=== PATIENT | female | born 1950 | race Caucasian/White ===

== ENCOUNTER 2017-03-26 13:03 | Emergency (ER) | payer BC, OTHER ==
[~2017-03-26] VITALS: Ht 157.5 cm; Wt 65.8 kg
--- NOTE | 2017-03-26 13:18 | ED General ---
General Chief Complaint: General Problems/Pain Stated Complaint: NEEDS COVERING FOR PIC LINE REPLACED Source of Information: Patient Exam Limitations: No Limitations History of Present Illness Time Seen by Provider: 13:16 Initial Comments To ER with need for a new dressing over her PICC line to the right arm. Patient is from [facility] and is a leukemia patient at [facility] in [place]. She is visiting here as she was finally cleared to travel by her oncologist. She is originally from [facility] [place]. She has her PICC line in place but the dressing became loose this morning. No redness or pain around the PICC line. No fevers or chills. Timing/Duration: 1-2 Days Severity: Moderate Allergies and Home Medications Allergies Coded Allergies: Sulfa (Sulfonamide Antibiotics) (Verified Allergy, Unknown, 03/26/17) latex (Verified Allergy, Unknown, 03/26/17) silver (Verified Allergy, Unknown, 03/26/17) Home Medications Cefpodoxime Proxetil 200 Mg Tablet, #60 (Reported) Hydromorphone HCl 2 Mg Tablet, #20 (Reported) Mupirocin 22 Gm Oint...g., #22 (Reported) Ondansetron 8 Mg Tab.rapdis, #18 (Reported) Tramadol HCl 50 Mg Tablet, #80 (Reported) Valacyclovir HCl 500 Mg Tablet, #30 (Reported) Constitutional: see HPI EENTM: see HPI Respiratory: no symptoms reported Cardiovascular: no symptoms reported Genitourinary: no symptoms reported Musculoskeletal: no symptoms reported Skin: no symptoms reported Psychiatric/Neurological: No Symptoms Reported Hematologic/Lymphatic: No Symptoms Reported Past Ctzhpeh-Uccheg-Kikugn Hx Patient Social History Recent Foreign Travel: No Contact w/Someone Who Travel: No Physical Exam Vital Signs Vital Sign - Last 12Hours 03/26/17 13:11 Temp 97.6 Pulse 81 Resp 18 B/P (MAP) 125/78 Pulse Ox 97 O2 Delivery Room Air Capillary Refill : General Appearance: No Apparent Distress, WD/WN Eyes: Bilateral Eye EOMI, Bilateral Eye Normal Inspection, Bilateral Eye PERRL HEENT: PERRL/EOMI, TMs Normal Neck: Full Range of Motion, Normal Inspection Respiratory: No Accessory Muscle Use, No Respiratory Distress Cardiovascular: Regular Rate, Rhythm, Normal Peripheral Pulses Gastrointestinal: Normal Bowel Sounds, Non Tender, Soft Extremity: Normal Capillary Refill, Non Tender Neurologic/Psychiatric: Alert, Oriented x3 Skin: Normal Color, Warm/Dry, Other (PICC line insertion to the medial right upper arm with absolutely no erythema around the insertion site. Remain sutured in place. No drainage. Surrounding skin is soft and dry nontender. This was cleansed with chlorhexidine swabs then recovered with an OpSite.) Progress/Results/Core Measures Results/Orders Vital Signs/I&O Vital Sign - Last 12Hours 03/26/17 13:11 Temp 97.6 Pulse 81 Resp 18 B/P (MAP) 125/78 Pulse Ox 97 O2 Delivery Room Air Departure Impression Impression: Primary Impression: Encounter for change of dressing Disposition: HOME, SELF-CARE Condition: Stable Departure-Patient Inst. Decision time for Depature: 13:17 Referrals: NO,LOCAL PHYSICIAN (PCP/Family) Primary Care Physician Patient Instructions: NO INSTRUCTIONS GIVEN Add. Discharge Instructions: 1. All discharge instructions reviewed with patient and/or family. Voiced understanding. SABAS BUENROSTRO ROTOR PILOT March 26, 2017 13:18
[2017-03-26] MEDS ORDERED: VALA500T (13:20)
[2017-03-26] MEDS ORDERED: ONDA8TAB13 (13:20)
[2017-03-26] MEDS ORDERED: TRAM50TA2 (13:20)
[2017-03-26] MEDS ORDERED: MUPI22OI2 (13:20)
[2017-03-26] MEDS ORDERED: CEFP200T2 (13:20)
[2017-03-26] MEDS ORDERED: HYDR2TAB6 (13:20)
[2017-03-26 13:37] VITALS: BP 125/78
== END 2017-03-26 13:40 | disposition home or self-care (01) ==
LOC: ER 13:08
DX: Z48.01 Encounter for change or removal of surgical wound dressing (principal); C95.90 Leukemia, unspecified not having achieved remission; Z79.899 Other long term (current) drug therapy; Z95.828 Presence of other vascular implants and grafts
CPT/HCPCS: 99282